=== PATIENT | male | born 1990 | race African-American/Black ===

== ENCOUNTER 2020-08-12 11:18 | Emergency (ER) | payer SELFPAY ==
[~2020-08-12] VITALS: Ht 190.5 cm; Wt 131.0 kg
[2020-08-12] MEDS ORDERED: KETOROLAC 15MG/ML VIAL IV ONE (12:00)
[2020-08-12 12:19] LABS: BASOPHILS % 0.5 % (0.0-2.0); EOSINOPHILS % 2.4 % (0.0-5.0); HEMATOCRIT. 44.4 % (42.0-52.0); HEMOGLOBIN. 15.6 g/dL (14.0-18.0); LYMPHOCYTES % 31.3 % (20.0-50.0); MEAN CORPUSCULAR HEMOGLOBIN 31.9 pg (28.0-32.0); MEAN CORPUSCULAR VOLUME 90.6 fL (80.0-94.0); MEAN PLATELET VOLUME 8.8 fl (7.4-10.4); MONOCYTES % 10.2 % (2.0-8.0); NEUTROPHILS % 55.6 % (40.0-76.0); PLATELET 192 x1000/uL (130-400); RED CELL DISTRIBUTION WIDTH 12.3 % (11.6-14.6)
[2020-08-12 12:23] LABS: CHLORIDE 109 mEq/L (98-107)
[2020-08-12 12:32] LABS: CREATINE KINASE 504 IU/L (39-308)
[2020-08-12 15:37] VITALS: BP 127/74
== END 2020-08-12 15:43 | disposition home or self-care (01) ==
LOC: ER 11:18
DX: R07.89 Other chest pain (principal); R06.02 Shortness of breath; R61 Generalized hyperhidrosis
CPT/HCPCS: 36415; 71045; 80053; 82550; 83880; 84484; 85025; 93005; 96374; 99285; J1885